=== PATIENT | female | born 1965 | race Hispanic/Latino ===

== ENCOUNTER 2019-01-30 19:46 | Emergency (ER) | payer BC ==
[2019-01-30] MEDS ORDERED: Morphine 4 MG/ML VIAL ONE (20:04)
[2019-01-30] MEDS ORDERED: Tdap Vaccine 0.5 ml Vial (10-64 yrs) IM ONE (20:28)
[2019-01-30] MEDS ORDERED: Sodium Chloride 0.9% 1,000 ML IV STA ×2 (20:28)
[2019-01-30 20:40] LABS: BASO # 0.1 K/uL (0.0-0.2); BASO % 0.9 % (0.0-2.0); EOS # 0.2 K/uL (0.0-0.7); EOS % 2.2 % (0.0-4.0); HEMOGLOBIN 13.1 g/dL (12.0-16.0); LYMPH # 3.2 K/uL (1.0-4.3); MEAN CELL VOLUME 91.3 fl (81.0-99.0); MEAN CORPUSCULAR HEMOGLOBIN 30.3 pg (27.0-31.0); MEAN CORPUSCULAR HGB CONC 33.2 g/dL (33.0-37.0); MONO # 0.6 K/uL (0.0-0.8); MONO % 7.1 % (0.0-10.0); NEUT % 49.8 % (50.0-75.0); NRBC % 0.1 % (0.0-0.0); RBC 4.33 Mil/uL (3.80-5.20); RED CELL DISTRIBUTION WIDTH 13.8 % (11.5-14.5); WHITE BLOOD COUNT 7.9 K/uL (4.8-10.8)
[2019-01-30 20:44] LABS: PROTHROMBIN TIME 11.1 Seconds (9.8-13.1)
[2019-01-30 20:47] LABS: PARTIAL THROMBOPLASTIN TIME 32.2 Seconds (25.6-37.1)
[2019-01-30 20:48] LABS: ALB/GLOB RATIO 1.3 (1.0-2.1); ALBUMIN 4.4 g/dL (3.5-5.0); ALT/SGPT 17 U/L (9-52); AST/SGOT 22 U/L (14-36); BLOOD UREA NITROGEN 18 mg/dl (7-17); CALCIUM 8.9 mg/dL (8.4-10.2); GFR NON-AFRICAN AMERICAN > 60
--- NOTE | 2019-01-30 21:05 | ED PDOC ---
HPI: Wound Care - HPI Time Seen by Provider: 01/30/19 19:51 Chief Complaint (Nursing): Abnormal Skin Integrity Chief Complaint (Provider): finger,hand,&wrist History Per: Patient, EMS Exam Limitations: no limitations Onset/Duration Of Symptoms: Mins (just prior to arrival) Current Symptoms Are (Timing): Still Present Location Of Injury: Left: Hand Quality Of Symptoms: Other (profuse amount of bleeding) Severity: Moderate Additional Complaint(s): 53 year old female with a past medical history of bipolar disorder presents to the ED for an evaluation of multiple left hand lacerations she sustained just prior to arrival. Patient states that she was closing a window when it broke and her hand went through it, sustaining multiple lacerations to her left hand. Patient reports having a profuse amount of bleeding. Patient denies having lightheadedness or dizziness, but states that she feels very nervous. As per EMS, there was a copious amount of blood at the scene. Tetanus is not up to date PMD: Destiny Ryan MD Past Medical History Reviewed: Historical Data, Nursing Documentation, Vital Signs [facility] Report Viewed: Yes Primary Care Provider: Destiny Ryan - Medical History PMH: Bipolar Disorder - Family History Family History: States: No Known Family Hx - Social History Current smoker - smoking cessation education provided: No Alcohol: None Drugs: Denies - Immunization History Hx Tetanus Toxoid Vaccination: No - Home Medications Home Medications: Ambulatory Orders Medication Instructions Recorded Ketorolac Tromethamine [Toradol] 10 mg PO BID #20 tab 01/30/19 - Allergies Allergies/Adverse Reactions: Allergies Allergy/AdvReac Type Severity Reaction Status Date / Time No Known Allergies Allergy Verified 01/30/19 19:48 Review of Systems ROS Statement: Except As Marked, All Systems Reviewed And Found Negative Cardiovascular: Negative for: Light Headedness Musculoskeletal: Positive for: Other (multiple lacerations to left hand) Neurological: Negative for: Dizziness Psych: Positive for: Other (feels very nervous) Physical Exam - Reviewed Nursing Documentation Reviewed: Yes Vital Signs Reviewed: Yes - Physical Exam Appears: Positive for: Non-toxic, No Acute Distress Head Exam: Positive for: ATRAUMATIC, NORMOCEPHALIC Skin: Positive for: Normal Color, Warm, Dry Extremity: Positive for: Other (3x 1cm in length lacerations to the palmar surface of left hand with arterial bleeding; 2+ capillary refill, gross motor/sensation intact- difficult exam secondary to profuse bleeding and tourniquets placed) Neurological/Psych: Positive for: Awake, Alert, Oriented (3x) - Laboratory Results Result Diagrams: 01/30/19 20:25 01/30/19 20:25 Lab Results: PT 11.1 Seconds (9.8-13.1) 01/30/19 20:25 INR 1.0 01/30/19 20:25 APTT 32.2 Seconds (25.6-37.1) 01/30/19 20:25 Total Bilirubin 0.3 mg/dl (0.2-1.3) 01/30/19 20:25 AST 22 U/L (14-36) 01/30/19 20:25 ALT 17 U/L (9-52) 01/30/19 20:25 Alkaline Phosphatase 71 U/L (38-126) 01/30/19 20:25 Total Protein 7.7 G/DL (6.3-8.2) 01/30/19 20:25 Albumin 4.4 g/dL (3.5-5.0) 01/30/19 20:25 Globulin 3.4 gm/dL (2.2-3.9) 01/30/19 20:25 Albumin/Globulin Ratio 1.3 (1.0-2.1) 01/30/19 20:25 - Critical Care Total Time (In Min): 60 Medical Decision Making Medical Decision Makin:51 Initial impression: 53 year old female with arterial bleeding due to hand laceration. 2 IVs immediately placed by MD. Patient placed on monitor, fluids running Difficult to assess for motor/nerve damage given emergent need for closure, Dr. Weathers anesthetized patient with marcaine to perform emergent closure at bedside to repair wounds. Initial plan: * type and screen * CMP * CBC with differential * PT/PTT * adacel 10-64 yrs 0.5 ml IM * IV NS 1,000 ml IV 1,000 mls/hr * IV NS 1,000 ml IV 1,000 mls/hr * morphine 4 mg IVP * reevaluation Xray shows no foreign body, no gross abnormality Patient to followup with Dr. Weathers on Thursday Very well appearing upon discharge Scribe Attestation: Documented by Angelique Glass, acting as a scribe for Garland Zamarripa MD. Provider Scribe Attestation: All medical record entries made by the Scribe were at my direction and personally dictated by me. I have reviewed the chart and agree that the record accurately reflects my personal performance of the history, physical exam, medical decision making, and the department course for this patient. I have also personally directed, reviewed, and agree with the discharge instructions and disposition. Disposition - Clinical Impression Clinical Impression: Hand laceration Counseled Patient/Family Regarding: Studies Performed, Diagnosis, Need For Followup, Rx Given - Disposition Referrals: Elba Weathers MD [Medical Doctor] - Disposition: Routine/Home Disposition Time: 22:15 Condition: IMPROVED Prescriptions: Ketorolac Tromethamine [Toradol] 10 mg PO BID #20 tab Instructions: Laceration Repair With Stitches (DC) Forms: [employer] (Bulgarian)
[2019-01-30 21:18] VITALS: TEMP 97.9
[2019-01-30] MEDS ORDERED: Morphine 4 MG/ML VIAL IVP STA (21:41)
[2019-01-30 22:16] VITALS: BP 138/72; PULSE 81; RESP 15; O2SAT 99
--- NOTE | 2019-01-31 11:21 | RAD ---
PROCEDURE: Left Hand Radiographs. HISTORY: lac, hand injury COMPARISON: None. TECHNIQUE: 3 views obtained. FINDINGS: BONES: Partial cast obscures fine bone and soft-tissue detail throughout the right hand JOINTS: No subluxation or dislocation identified. SOFT TISSUES: Unremarkable as imaged. No retained radiodense foreign body appreciable. OTHER FINDINGS: None. IMPRESSION: No retained radiodense foreign body appreciable. No gross fracture evident. Exam compromised by presence of partial cast material.
== END 2019-01-30 22:16 | disposition home or self-care (01) ==
LOC: EDSEX 19:46 → MERGE 19:46 → H.ER 19:46
DX: S61.412A Laceration without foreign body of left hand, initial encounter (principal); W25.XXXA Contact with sharp glass, initial encounter; Y92.89 Other specified places as the place of occurrence of the external cause; F31.9 Bipolar disorder, unspecified
CPT/HCPCS: 12001; 29125; 73130; 80053; 85025; 85610; 85730; 86850; 86900; 90471; 90715; 96374; 99283; J2270; J7030